=== PATIENT | male | born 2005 | race Two or more races ===

== ENCOUNTER 2023-04-27 09:56 | Emergency (ER) | payer OTHER ==
[~2023-04-27] VITALS: Ht 182.9 cm; Wt 90.2 kg
[2023-04-27 13:12] LABS: Chloride 106 mmol/L (98-107); Potassium 4.5 mmol/L (3.5-5.1); Sodium 140 mmol/L (136-145)
[2023-04-27 13:13] LABS: Anion Gap 5 (5-15); Calcium 9.7 mg/dL (8.5-10.1); Carbon Dioxide 29 mmol/L (20-30)
[2023-04-27 13:18] LABS: BUN/Creatinine Ratio 9.7 (10.0-20.0); Blood Urea Nitrogen 11 mg/dL (9-23); Glucose 93 mg/dL (74-106)
[2023-04-27 13:23] LABS: Basophils # (auto) 0 10 ^3/uL (0-0.2); Basophils % (auto) 0.3 % (0.0-2.0); Eosinophils # (auto) 0 10 ^3/uL (0-0.8); Eosinophils % (auto) 0.4 % (0.0-7.0); Hematocrit 47.2 % (41.0-53.0); Hemoglobin 15.6 g/dL (13.5-17.5); Lymphocytes # (auto) 1.6 10 ^3/uL (0.4-5.4); Mean Corpuscular Hemoglobin 29.9 pg (28.0-32.0); Mean Corpuscular Volume 90.8 fL (80.0-100.0); Monocytes # (auto) 0.8 10 ^3/uL (0-1.3); Monocytes % (auto) 8.9 % (0.0-12.0); Neutrophils # (auto) 6.1 10 ^3/uL (1.6-8.6); Neutrophils % (auto) 71.4 % (37.0-80.0); Red Cell Distribution Width 13.6 % (11.8-14.3); White Blood Cell 8.6 10^3/uL (4.4-10.8)
[2023-04-27 14:21] LABS: Urine Bacteria NONE SEEN /hpf (None Seen); Urine Blood 1+ /uL (Negative); Urine Clarity HAZY (Clear); Urine Color Yellow (Yellow); Urine Protein, UAD 1+ (Negative); Urine Specific Gravity 1.025 (1.001-1.035); Urine Urobilinogen Normal (Negative); Urine WBC 191 /hpf (0 - 3)
[2023-04-27 14:47] LABS: Albumin 5.1 g/dL (3.2-4.8); Alkaline Phosphatase 106 U/L (46-116); Anion Gap 5 (5-15); Aspartate Aminotransferase 13 U/L (13-40); BUN/Creatinine Ratio 7.3 (10.0-20.0); Bilirubin, Total 0.7 mg/dL (0.2-1.0); Blood Urea Nitrogen 8 mg/dL (9-23); Calcium 9.3 mg/dL (8.7-10.4); Carbon Dioxide 29 mmol/L (20-30); Chloride 105 mmol/L (98-107); Glucose 95 mg/dL (74-106); Potassium 3.9 mmol/L (3.5-5.1); Sodium 139 mmol/L (136-145)
[2023-04-27 14:48] LABS: Total Protein 7.9 g/dL (5.7-8.2)
[2023-04-27 14:52] LABS: Alanine Aminotransferase 9 U/L (7-40)
[2023-04-27 15:27] VITALS: BP 138/69; PULSE 52; RESP 17; TEMP 98; O2SAT 99
[2023-04-27] MEDS ORDERED: cefTRIAXone SOD 500 MG VL IM ONE (15:30)
[2023-04-27] MEDS ORDERED: DOXY-286 PO (15:34)
[2023-04-27] MEDS ORDERED: cefTRIAXone SOD 1,000 MG VL IM ONE (15:45)
[2023-04-27] MEDS ORDERED: LIDOCAINE 1% HCL (LOCAL ANESTH.) INJ 20ML MDV ONE (15:47)
[2023-04-29 09:07] LABS: Chlamydia Trachomatis, NAA Positive (Negative); Neisseria gonorrhoeae, NAA Negative (Negative)
== END 2023-04-27 16:02 | disposition home or self-care (01) ==
LOC: ER 09:56 → EDBD 09:56 → ER 16:02
DX: N45.1 Epididymitis (principal)
CPT/HCPCS: 36415; 74176; 76870; 80048; 80053; 81001; 85025; 87491; 87591; 96372; 99285; J0696; J2001